=== PATIENT | female | born 1960 | race Caucasian/White ===

== ENCOUNTER 2020-02-04 11:39 | Emergency (ER) | payer OTHER ==
[~2020-02-04] VITALS: Ht 165.1 cm; Wt 124.7 kg
[2020-02-04] MEDS ORDERED: MORPHINE SULFATE 4 MG/ML SYR/VIAL IV ONE (12:30)
[2020-02-04] MEDS ORDERED: ONDANSETRON HCL 4 MG/2 ML VIAL IV ONE (12:30)
[2020-02-04 13:15] LABS: Basophils # (auto) 0 10 ^3/uL (0-0.2); Basophils % (auto) 0.5 % (0.0-2.0); Eosinophils # (auto) 0.1 10 ^3/uL (0-0.8); Eosinophils % (auto) 0.9 % (0.0-7.0); Hematocrit 42.7 % (36.0-46.0); Hemoglobin 14.5 g/dL (12.2-16.2); Lymphocytes # (auto) 2.3 10 ^3/uL (0.4-5.4); Lymphocytes % (auto) 23.9 % (10.0-50.0); Mean Corpuscular Hemoglobin 29.3 pg (28.0-32.0); Mean Corpuscular Hgb Conc. 33.9 g/dL (32.0-36.0); Mean Corpuscular Volume 86.5 fL (80.0-100.0); Monocytes # (auto) 0.5 10 ^3/uL (0-1.3); Monocytes % (auto) 5.2 % (0.0-12.0); Neutrophils # (auto) 6.6 10 ^3/uL (1.6-8.6); Neutrophils % (auto) 69.5 % (37.0-80.0); Nucleated Red Blood Cells % 0.1 %; Platelet Count (auto) 184 10^3/uL (140-450); Red Blood Cells 4.94 10^6/uL (4.0-5.20); Red Cell Distribution Width 14.1 % (11.8-14.3); White Blood Cell 9.5 10^3/uL (4.4-10.8)
[2020-02-04 13:37] LABS: Alanine Aminotransferase 33 U/L (13-56); Albumin 3.5 g/dL (3.4-5.0); Anion Gap 9 (5-15); Blood Urea Nitrogen 17 mg/dL (7-18); Carbon Dioxide 26 mmol/L (21-32); Chloride 99 mmol/L (98-107); Glucose 195 mg/dL (74-106); Potassium 3.7 mmol/L (3.5-5.1); Sodium 134 mmol/L (136-145)
[2020-02-04 13:41] LABS: Alkaline Phosphatase 70 U/L (45-117); Aspartate Aminotransferase 29 U/L (15-37); BUN/Creatinine Ratio 23.9; Bilirubin, Total 0.6 mg/dL (0.2-1.0); GFR African American 108 mL/min; GFR Non-African American 89 mL/min; Total Protein 8.3 g/dL (6.4-8.2)
[2020-02-04 14:38] VITALS: BP 136/80
== END 2020-02-04 14:30 | disposition home or self-care (01) ==
LOC: ER 11:39
DX: S70.01XA Contusion of right hip, initial encounter (principal); E11.9 Type 2 diabetes mellitus without complications; E78.5 Hyperlipidemia, unspecified; J44.9 Chronic obstructive pulmonary disease, unspecified; Z88.1 Allergy status to other antibiotic agents; Z90.49 Acquired absence of other specified parts of digestive tract; W19.XXXA Unspecified fall, initial encounter; Y93.89 Activity, other specified; Y92.89 Other specified places as the place of occurrence of the external cause; Y99.8 Other external cause status
CPT/HCPCS: 36415; 71101; 73502; 80053; 84484; 85025; 96374; 96375; 99284; J2270; J2405

== ENCOUNTER 2022-12-06 16:43 | Emergency (ER) | payer OTHER, MEDICAID ==
[~2022-12-06] VITALS: Ht 160 cm; Wt 135.1 kg
[2022-12-06 19:11] LABS: Basophils # (auto) 0 10 ^3/uL (0-0.2); Basophils % (auto) 0.4 % (0.0-2.0); Eosinophils # (auto) 0.1 10 ^3/uL (0-0.8); Eosinophils % (auto) 1.3 % (0.0-7.0); Hemoglobin 14.4 g/dL (12.2-16.2); Lymphocytes % (auto) 27.5 % (10.0-50.0); Mean Corpuscular Hemoglobin 29.4 pg (28.0-32.0); Mean Corpuscular Hgb Conc. 34.2 g/dL (32.0-36.0); Mean Corpuscular Volume 85.9 fL (80.0-100.0); Monocytes # (auto) 0.6 10 ^3/uL (0-1.3); Monocytes % (auto) 7.6 % (0.0-12.0); Neutrophils # (auto) 4.7 10 ^3/uL (1.6-8.6); Neutrophils % (auto) 63.2 % (37.0-80.0); Nucleated Red Blood Cells % 0.1 %; Red Blood Cells 4.88 10^6/uL (4.0-5.20); Red Cell Distribution Width 14.7 % (11.8-14.3); White Blood Cell 7.4 10^3/uL (4.4-10.8)
[2022-12-06 19:23] LABS: Albumin 3.6 g/dL (3.4-5.0); Calcium 9.3 mg/dL (8.5-10.1); Potassium 3.6 mmol/L (3.5-5.1)
[2022-12-06 19:26] LABS: BUN/Creatinine Ratio 30.4; Bilirubin, Total 0.5 mg/dL (0.2-1.0); Total Protein 8.3 g/dL (6.4-8.2)
[2022-12-06 19:29] LABS: INR 0.97 (0.9-1.15); Partial Thromboplastin Time 30.5 sec (24.6-33.4)
[2022-12-06 20:45] VITALS: BP 145/86
== END 2022-12-06 20:49 | disposition home or self-care (01) ==
LOC: ER 16:43
DX: S30.1XXA Contusion of abdominal wall, initial encounter (principal); J44.9 Chronic obstructive pulmonary disease, unspecified; E11.9 Type 2 diabetes mellitus without complications; E78.5 Hyperlipidemia, unspecified; Z90.49 Acquired absence of other specified parts of digestive tract; Z88.8 Allergy status to other drugs, medicaments and biological substances; W18.39XA Other fall on same level, initial encounter; Y93.89 Activity, other specified; Y92.89 Other specified places as the place of occurrence of the external cause; Y99.8 Other external cause status
CPT/HCPCS: 36415; 74176; 80053; 85025; 85610; 85730

== ENCOUNTER → 2023-04-07 | Outpatient (CLI) | payer OTHER, MEDICAID ==
[2023-04-07 07:11] LABS: Basophils # (auto) 0 10 ^3/uL (0-0.2); Basophils % (auto) 0.5 % (0.0-2.0); Eosinophils # (auto) 0.1 10 ^3/uL (0-0.8); Eosinophils % (auto) 1.9 % (0.0-7.0); Hematocrit 37.5 % (36.0-46.0); Hemoglobin 12.8 g/dL (12.2-16.2); Lymphocytes # (auto) 2.4 10 ^3/uL (0.4-5.4); Lymphocytes % (auto) 40.7 % (10.0-50.0); Mean Corpuscular Hemoglobin 29.4 pg (28.0-32.0); Mean Corpuscular Volume 86.4 fL (80.0-100.0); Monocytes # (auto) 0.4 10 ^3/uL (0-1.3); Monocytes % (auto) 7.6 % (0.0-12.0); Neutrophils # (auto) 2.9 10 ^3/uL (1.6-8.6); Neutrophils % (auto) 49.3 % (37.0-80.0); Nucleated Red Blood Cells % 0.1 %; Red Blood Cells 4.35 10^6/uL (4.0-5.20); Red Cell Distribution Width 14.9 % (11.8-14.3); White Blood Cell 5.8 10^3/uL (4.4-10.8)
[2023-04-07 07:46] LABS: Albumin 3.6 g/dL (3.4-5.0); Calcium 9.2 mg/dL (8.5-10.1); Potassium 3.8 mmol/L (3.5-5.1)
[2023-04-07 07:53] LABS: BUN/Creatinine Ratio 38.6 (10.0-20.0); Bilirubin, Total 0.5 mg/dL (0.2-1.0); Total Protein 7.7 g/dL (6.4-8.2)
== END | disposition home or self-care (01) ==
LOC: LAB 06:48
PROVIDERS: ATTEND Internal Medicine Hematology & Oncology
DX: E11.42 Type 2 diabetes mellitus with diabetic polyneuropathy (principal); I10 Essential (primary) hypertension; K21.9 Gastro-esophageal reflux disease without esophagitis; E55.9 Vitamin D deficiency, unspecified; Z12.11 Encounter for screening for malignant neoplasm of colon; J40 Bronchitis, not specified as acute or chronic
CPT/HCPCS: 36415; 80053; 80061; 82043; 82306; 83036; 84443; 85025

== ENCOUNTER → 2023-09-06 | Outpatient (CLI) | payer OTHER, MEDICAID ==
[2023-09-06 08:59] LABS: Basophils # (auto) 0 10 ^3/uL (0-0.2); Basophils % (auto) 0.4 % (0.0-2.0); Eosinophils # (auto) 0.1 10 ^3/uL (0-0.8); Hematocrit 40.7 % (36.0-46.0); Hemoglobin 13.2 g/dL (12.2-16.2); Lymphocytes # (auto) 1.9 10 ^3/uL (0.4-5.4); Mean Corpuscular Hemoglobin 28.5 pg (28.0-32.0); Mean Corpuscular Hgb Conc. 32.6 g/dL (32.0-36.0); Mean Corpuscular Volume 87.4 fL (80.0-100.0); Monocytes # (auto) 0.5 10 ^3/uL (0-1.3); Monocytes % (auto) 6.8 % (0.0-12.0); Neutrophils % (auto) 65.8 % (37.0-80.0); Red Blood Cells 4.65 10^6/uL (4.0-5.20); Red Cell Distribution Width 15.7 % (11.8-14.3); White Blood Cell 7.5 10^3/uL (4.4-10.8)
[2023-09-06 09:27] LABS: Alanine Aminotransferase 17 U/L (7-40); Albumin 4.4 g/dL (3.2-4.8); Alkaline Phosphatase 48 U/L (46-116); Anion Gap 8 (5-15); Aspartate Aminotransferase 19 U/L (13-40); BUN/Creatinine Ratio 27.1 (10.0-20.0); Blood Urea Nitrogen 16 mg/dL (9-23); Calcium 9.7 mg/dL (8.5-10.1); Carbon Dioxide 25 mmol/L (20-30); Chloride 104 mmol/L (98-107); Cholesterol 103 mg/dL (< 200); Glucose 119 mg/dL (74-106); LDL Cholesterol 46 mg/dL (< 100); Sodium 137 mmol/L (136-145); Triglycerides 103 mg/dL (< 150)
[2023-09-06 09:28] LABS: Bilirubin, Total 0.7 mg/dL (0.2-1.0); HDL Cholesterol 42 mg/dL (40-59); Total Protein 7.5 g/dL (5.7-8.2)
== END | disposition home or self-care (01) ==
LOC: LAB 08:39
PROVIDERS: ATTEND Internal Medicine Hematology & Oncology
DX: I10 Essential (primary) hypertension (principal); E11.9 Type 2 diabetes mellitus without complications; E78.5 Hyperlipidemia, unspecified; E03.9 Hypothyroidism, unspecified
CPT/HCPCS: 36415; 80053; 80061; 83036; 85025

== ENCOUNTER → 2024-03-02 | Outpatient (CLI) | payer OTHER, MEDICAID ==
[2024-03-02 15:15] LABS: Amphetamine Screen, Urine Neg (NEGATIVE); Barbiturate Scree,Urine Neg (NEGATIVE); Benzodiazephine Screen, Urine Neg (NEGATIVE); Cannabinoid Screen, Urine Neg (NEGATIVE); Cocaine Screen, Urine Neg (NEGATIVE); Opiate Scree,Urine Neg (NEGATIVE); Phencyclidine Screen, Urine Neg (NEGATIVE)
== END | disposition home or self-care (01) ==
LOC: LAB 14:42
PROVIDERS: ATTEND Internal Medicine Hematology & Oncology
DX: E11.42 Type 2 diabetes mellitus with diabetic polyneuropathy (principal)
CPT/HCPCS: 80307

== ENCOUNTER 2024-09-01 13:26 | Emergency (ER) | payer OTHER, MEDICAID ==
[~2024-09-01] VITALS: Ht 160 cm; Wt 113.0 kg
--- NOTE | 2024-09-01 16:41 | ED.PDOC ---
Back pain HPI HPI Comments 64 y.o female with PMH of COPD, DM, sleep apnea and arthritis, presents to the ED for a chief complaint of left shoulder pain s/p pull injury. Patient reports last night she walked to bed, tried to move her Commode, grabbed it with her left arm and heard a popping sensation , then felt pain in her left shoulder. Patient immediately began having sharp pain and had limited ROM due to the pain. Patient denies any falls. Patient denies any other associating symptoms. Chief Complaint: Upper Extremity Time Seen by MD: 16:24 Reviewed Notes: Nurses Notes, Galley Cook Notes, Medications, Allergies Allergies: Coded Allergies: Amoxicillin (Verified Allergy, Unknown, 02/04/20) Information Source: Patient Mode of Arrival: EMS Timing: Hours Duration: Since onset Severity: Mild Quality: Sharp Onset: Lifing Circumstance: Other History of: None Past Medical History PAST MEDICAL HISTORY: COPD, DM, High Lipids Surgical History: Appendectomy, Cholecystectomy PAPER REELER History: No Pertinent PAPER REELER History Family History Family History: Family hx of Cancer Social History Smoker: Non-Smoker Alcohol: Denies ETOH Use Drugs: Denies Drug Use Lives In: Home Constitutional: denies: chills, diaphoresis, fatigue, fever, malaise, sweats, weakness, others EENTM: denies: blurred vision, double vision, ear bleeding, ear discharge, ear drainage, ear pain, ear ringing, eye pain, eye redness, hearing loss, mouth pain, mouth swelling, nasal discharge, nose bleeding, nose congestion, nose pain, photophobia, tearing, throat pain, throat swelling, voice changes, others Respiratory: denies: cough, hemoptysis, orthopnea, SOB at rest, shortness of breath, SOB with excertion, stridor, wheezing, others Cardiovascular: denies: chest pain, dizzy spells, diaphoresis, Dyspnea on exertion, edema, irregular heart beat, left arm pain, lightheadedness, palpitations, PND, syncope, others Gastrointestinal: denies: abdomen distended, abdominal pain, blood streaked bowels, constipated, diarrhea, dysphagia, difficulty swallowing, hematemesis, melena, nausea, poor appetite, poor fluid intake, rectal bleeding, rectal pain, vomiting, others Genitourinary: denies: abnormal vagina bleeding, burning, dyspareunia, dysuria, flank pain, frequency, hematuria, incontinence, pain, , vagina discharge, urgency, others Neurological: denies: dizziness, fainting, headache, left sided numbness, left sided weakness, numbness, paresthesia, pre-existing deficit, right sided numbness, right sided weakness, seizure, speech problems, tingling, tremors, weakness, others Musculoskeletal: reports: others (left shoulder pain ); denies: back pain, gout, joint pain, joint swelling, muscle pain, muscle stiffness, neck pain Integumetry: denies: bruises, change in color, change in hair/nails, dryness, laceration, lesions, lumps, rash, wounds, others Allergic/Immunocompromised: denies: Difficulty Healing, Frequent Infections, Hives, Itching, others Hematologic/Lymphatic: denies: anemia, blood clots, easy bleeding, easy bruising, swollen glands, others Endocrine: denies: excessive hunger, excessive sweating, excessive thirst, excessive urination, flushing, intolerance to cold, intolerance to heat, unexplained weight gain, unexplained weight loss, others Psychiatric: denies: anxiety, bipolar disorder, depression, hopeless, panic disorder, schizophrenia, sleepless, suicidal, others All Other Systems: Reviewed and Negative Physical Exam General Appearance: No Apparent Distress, Obese HEENT: Normal ENT Inspection Neck: Full Range of Motion, Normal Inspection Respiratory: Lungs Clear, No Accessory Muscle Use, No Respiratory Distress, Normal Breath Sounds Cardiovascular: No Edema, No JVD, Regular Rate/Rhythm Breast Exam: Deferred Gastrointestinal: Non Tender, Soft Genitalia: Deferred Pelvic: Deferred Rectal: Deferred Extremities: Normal inspection, Other (Left shoulder diffuse soft tissue tenderness and painful range of motion, particularly with abduction and flexion.) Neurologic: Alert, No Motor Deficits, Normal Affect, Normal Mood, No Sensory Deficits Cerebellar Function: NOT DONE Reflexes: NOT DONE Skin: Dry, Normal Color, Warm Peripheral Pulses: 2+ Radial (R), 2+ Radial (L) Lymphatic: NOT DONE Was a procedure done? Was a procedure done?: No Back Pain Differential Dx Differential Diagnosis: Fracture, Musculoskeletal Pain, Strain Other Differential Diagnosis dislocation X-Ray, Labs, Meds, VS Vital Signs Date Time Temp Pulse Resp B/P (MAP) Pulse Ox O2 Delivery O2 Flow Rate FiO2 09/01/24 18:01 97.9 69 17 144/73 (96) 96 97.9 09/01/24 18:01 69 17 96 Room Air 09/01/24 16:24 98.0 66 16 144/80 (101) 96 Current Medications Medications (Trade) Dose Ordered Sig/Angelo Route Start Time Stop Time Status Last Admin Ketorolac Tromethamine (Toradol Injection) 60 mg ONCE ONCE IM 09/01/24 17:30 09/01/24 17:31 DC 09/01/24 17:57 Acetaminophen/ Hydrocodone Bitart (Colcord 5/325MG Tab) 2 tab ONCE ONCE PO 09/01/24 17:30 09/01/24 17:31 DC 09/01/24 17:57 PROCEDURE(s): LSHD2 - L SHOULDER 2+ VIEW XRAY REASON: trauma ORDER NUMBER(s): [id number], ACCESSION NUMBER(s): [id number] EXAM: XY L SHOULDER 2+ VIEW XRAY CLINICAL HISTORY: trauma COMPARISON: None TECHNIQUE: XY L SHOULDER 2+ VIEW XRAY Findings/Impression: 3 views of the left shoulder. There is no evidence of an acute fracture, dislocation, blastic, or lytic lesions. No radiopaque foreign bodies. No joint effusion or superficial soft tissue abnormalities. X-Ray, Labs, Meds, VS Comment 64-year-old female with a history of COPD, DM, sleep apnea and arthritis complaining of left shoulder pain after a pulling/lifting injury. Vitals remarkable for BP 144/80 Exam remarkable for diffuse left shoulder soft tissue tenderness, no deformity, painful range of motion Left shoulder x-rays: Findings/Impression: 3 views of the left shoulder. There is no evidence of an acute fracture, dislocation, blastic, or lytic lesions. No radiopaque foreign bodies. No joint effusion or superficial soft tissue abnormalities. Patient was treated with the following in the ED: Toradol 60 mg IM, Colcord 5/325 mg, 2 tabs p.o. The left upper extremity was placed in a sling. The left upper extremity was neurovascularly intact after the sling was applied. On re-evaluation, patient was pain controlled, and vitals were stable. Hospitalization was considered, however the patient had rapid improvement of her symptoms with treatment in the ED, and I no longer feel hospitalization is necessary. Patient appears stable for outpatient follow-up with her primary physician for referral for MRI of her shoulder and possible patient orthopedic follow-up. Patient will be referred to Dr. Syed. Time of 1ST Reevaluation: 16:41 Reevaluation 1ST: Unchanged Time of 2ND Reevaluation: 18:51 Reevaluation 2ND: Improved Patient Education/Counseling: Diagnosis, Treatment, Prognosis Family Education/Counseling: No Family Present Departure 1 Departure Time of Disposition: 18:51 Impression: Primary Impression: Shoulder sprain Qualified Codes: S43.402A - Unspecified sprain of left shoulder joint, initial encounter Disposition: HOME / SELF CARE / HOMELESS Condition: Stable Referrals: LONI SYED MD Additional Instructions: Your left shoulder x-rays were normal. Take your own Colcord at home as needed for pain. I have also prescribed additional pain medication. Follow-up with your primary doctor in 1-2 days for referral for MRI of your shoulder. Alternatively, follow-up directly with Dr. Syed (orthopedics). e-Prescriptions Ibuprofen Micronized (Ibuprofen) 800 Mg Tab 800 MG PO Q8HP PRN, #30 TAB Prov: JOEL MYRICK MD 09/01/24 Discharged With: Relative Critical Care Note Critical Care Time?: No Stability Stability form required: No I personally scribed for JOEL MYRICK MD ([facility] on 09/01/24 at 16:41. Electronically submitted by Vangie Giang ([facility]). JOEL MYRICK MD Sep 01, 2024 16:41
--- NOTE | 2024-09-01 17:55 | DVH ---
EXAM: XY L SHOULDER 2+ VIEW XRAY CLINICAL HISTORY: trauma COMPARISON: None TECHNIQUE: XY L SHOULDER 2+ VIEW XRAY Findings/Impression: 3 views of the left shoulder. There is no evidence of an acute fracture, dislocation, blastic, or lytic lesions. No radiopaque foreign bodies. No joint effusion or superficial soft tissue abnormalities.
[2024-09-01] MEDS: KETOROLAC TROMETH 60MG/2ML VIAL IM ONE (17:57)
[2024-09-01] MEDS: HYDROcodone-ACET 5/325MG TAB PO ONE (17:57)
[2024-09-01 18:01] VITALS: TEMP 97.9
[2024-09-01] MEDS ORDERED: IBUP-1455 PO (18:54)
[2024-09-01 20:16] VITALS: BP 115/53; PULSE 63; RESP 18; O2SAT 95
== END 2024-09-01 20:18 | disposition home or self-care (01) ==
LOC: ER 13:26 → EDBD 13:26 → ER 20:18
DX: S43.492A Other sprain of left shoulder joint, initial encounter (principal); E11.9 Type 2 diabetes mellitus without complications; E78.5 Hyperlipidemia, unspecified; J44.9 Chronic obstructive pulmonary disease, unspecified; Z90.49 Acquired absence of other specified parts of digestive tract; Z88.0 Allergy status to penicillin; X58.XXXA Exposure to other specified factors, initial encounter; Y93.89 Activity, other specified; Y92.89 Other specified places as the place of occurrence of the external cause; Y99.8 Other external cause status
CPT/HCPCS: 73030; 96372; 99283; J1885

== ENCOUNTER 2024-11-09 12:17 | Emergency (ER) | payer OTHER, MEDICAID ==
[~2024-11-09] VITALS: Ht 152.4 cm; Wt 110.0 kg
[~2024-11-09 12:17] MED LIST: IBUP-1455 PO
[2024-11-09 14:17] VITALS: BP 144/69; PULSE 70; RESP 20; TEMP 97.9; O2SAT 95
--- NOTE | 2024-11-09 14:26 | ED.PDOC ---
Alejandra. trauma (HPI) HPI Comments A 64 YEAR OLD FEMALE BROUGHT IN BY AMBULANCE PRESENTS TO THE ED WITH COMPLAINT OF HEAD INJURY AND LEFT SHOULDER PAIN S/P FALL. PATIENT STATES SHE ACCIDENTALLY FELL AND LANDED ON THE LEFT SIDE OF HER BODY TODAY. PATIENT REPORTS SHE HIT HER HEAD ON THE GROUND AND IS NOW EXPERIENCING A HEADACHE AND LEFT SHOULDER PAIN. SYED CASAS DENIES NECK INJURY, LOC, FEVER, CHILLS, SHORTNESS OF BREATH, CHEST PAIN, ABDOMINAL PAIN, NAUSEA, VOMITING, OR OTHER COMPLAINTS. NO OTHER SYMPTOMS OR MODIFYING FACTORS AT THIS TIME. PATIENT IS ALERT, ORIENTED X 4, AND HAS STEADY GAIT. Chief Complaint: Fall Injury Time Seen by MD: 12:41 Reviewed notes: Nurses Notes, Medications, Allergies Allergies: Coded Allergies: Amoxicillin (Verified Allergy, Unknown, 02/04/20) Home Meds Active Scripts Ibuprofen Micronized (Ibuprofen) 800 Mg Tab, 800 MG PO Q8HP PRN, #30 TAB Prov:JOEL MYRICK MD 09/01/24 Information Source: Patient Mode of Arrival: EMS Severity: Moderate Timing: Days Duration: Since onset, Days Prehospital treatment: None Location: Head, (L) Shoulder Location of laceration: None Mechanism: Fall Associated signs and symtoms: Headache Past Medical History PAST MEDICAL HISTORY: COPD, DM, High Lipids Surgical History: Appendectomy, Cholecystectomy SEAT MAKER History: No Pertinent SEAT MAKER History Family History Family History: Family hx of Cancer Social History Smoker: Non-Smoker Alcohol: Denies ETOH Use Drugs: Denies Drug Use Lives In: Home Constitutional: denies: chills, diaphoresis, fatigue, fever, malaise, sweats, weakness, others EENTM: denies: blurred vision, double vision, ear bleeding, ear discharge, ear drainage, ear pain, ear ringing, eye pain, eye redness, hearing loss, mouth pain, mouth swelling, nasal discharge, nose bleeding, nose congestion, nose pain, photophobia, tearing, throat pain, throat swelling, voice changes, others Respiratory: denies: cough, hemoptysis, orthopnea, SOB at rest, shortness of breath, SOB with excertion, stridor, wheezing, others Cardiovascular: denies: chest pain, dizzy spells, diaphoresis, Dyspnea on exertion, edema, irregular heart beat, left arm pain, lightheadedness, palpitations, PND, syncope, others Gastrointestinal: denies: abdomen distended, abdominal pain, blood streaked bowels, constipated, diarrhea, dysphagia, difficulty swallowing, hematemesis, melena, nausea, poor appetite, poor fluid intake, rectal bleeding, rectal pain, vomiting, others Genitourinary: denies: abnormal vagina bleeding, burning, dyspareunia, dysuria, flank pain, frequency, hematuria, incontinence, pain, , vagina discharge, urgency, others Neurological: reports: headache; denies: dizziness, fainting, left sided numbness, left sided weakness, numbness, paresthesia, pre-existing deficit, right sided numbness, right sided weakness, seizure, speech problems, tingling, tremors, weakness, others Musculoskeletal: reports: joint pain, muscle pain, others (LEFT SHOULDER PAIN); denies: back pain, gout, joint swelling, muscle stiffness, neck pain Integumetry: denies: bruises, change in color, change in hair/nails, dryness, laceration, lesions, lumps, rash, wounds, others Allergic/Immunocompromised: denies: Difficulty Healing, Frequent Infections, Hives, Itching, others Hematologic/Lymphatic: denies: anemia, blood clots, easy bleeding, easy b ruising, swollen glands, others Endocrine: denies: excessive hunger, excessive sweating, excessive thirst, excessive urination, flushing, intolerance to cold, intolerance to heat, unexplained weight gain, unexplained weight loss, others Psychiatric: denies: anxiety, bipolar disorder, depression, hopeless, panic disorder, schizophrenia, sleepless, suicidal, others All Other Systems: Reviewed and Negative Physical Exam General Appearance: No Apparent Distress, Obese HEENT: Head (NO CONTUSIONS AND HEMATOMAS ON SCALP, NO SCALP DEFORMITY. ), Normal ENT Inspection, PERRL/EOMI, Pharynx Normal, TMs Normal Neck: Full Range of Motion, Non-Tender, Normal, Normal Inspection Respiratory: Chest Non-Tender, Lungs Clear, No Accessory Muscle Use, No Respiratory Distress, Normal Breath Sounds Cardiovascular: No Edema, No JVD, No Murmur, No Gallop, Normal Peripheral Pulses, Regular Rate/Rhythm Breast Exam: Deferred Gastrointestinal: No Organomegaly, Non Tender, No Pulsatile Mass, Normal Bowel Sounds, Soft Genitalia: Deferred Pelvic: Deferred Rectal: Deferred Extremities: Decreased range of motion (SLIGHTLY. ), No calf tenderness, Normal capillary refill, No pedal edema, Tender (AND MUSCLE SPASM ON LEFT SHOULDER, NO BONY TENDERNESS AND DEFORMITY. ) Musculoskeletal : Apperance: Normal Neurologic: Alert, graphic technician II-XII nml as Tested, No Motor Deficits, Normal Affect, Normal Mood, No Sensory Deficits Cerebellar Function: Normal Reflexes: Normal Skin: Dry, Normal Color, Warm Peripheral Pulses: 2+ carotid (R), 2+ carotid (L), 2+ dorsalis pedis (R), 2+ dorsalis pedis (L) Lymphatic: No Adenopathy Was a procedure done? Was a procedure done?: No Differential Diagnosis Multiple Trauma: Closed Head Injury, Fractures, Cerebral Contusion, Contusion, Hematoma, Other (MUSCLE STRAIN OF LEFT SHOULDER) Neck Injury: N/A X-Ray, Labs, Meds, VS Vital Signs Date Time Temp Pulse Resp B/P (MAP) Pulse Ox O2 Delivery O2 Flow Rate FiO2 11/09/24 14:17 97.9 70 20 144/69 (94) 95 97.9 11/09/24 12:40 97.9 70 20 144/69 (94) 95 Current Medications Medications (Trade) Dose Ordered Sig/Angelo Route Start Time Stop Time Status Last Admin Acetaminophen (Tylenol Tablet) 1,000 mg ONCE ONCE PO 11/09/24 15:00 11/09/24 15:01 DC 11/09/24 15:09 EXAM: CT HEAD WITHOUT CONTRAST HISTORY: FALL COMPARISON: None TECHNIQUE: Axial images of the head were obtained and reformatted in coronal and sagittal planes. All CT scans at this medical facility are performed using dose modulation techniques as appropriate to a performed exam including the following: Automated exposure control was utilized; adjustment of the MA and/or KV according to patient size; and use of iterative reconstruction technique. CT Dose: CTDI volume is 54 mGy. Dose-length product is 1067 mGy*cm FINDINGS: There is no evidence of acute intracranial hemorrhage, mass, mass effect midline shift. There is no hydrocephalus or extra-axial fluid collection. [place]-white matter differentiation is maintained. The visualized paranasal sinuses and mastoid air cells are clear. The calvarium is intact. IMPRESSION: 1. No acute intracranial process. HS:Y ATED BY: FABIÁN MADRIGAL MD DICTATED DATE/TIME: 11/09/241455 SIGNED BY: FABIÁN MADRIGAL MD SIGNED DATE/TIME: 11/09/241455 CC: XY L SHOULDER 2+ VIEW XRAY INDICATION: FALL TECHNICAL DATA: 3 views were obtained of the left shoulder. COMPARISON: XY L SHOULDER 2+ VIEW XRAY on DOS: 09/01/24 FINDINGS: There is no fracture or focal bone abnormality. The glenohumeral joint is normally maintained. The acromioclavicular joint appears normal. The humeral head is not high riding. Adjacent soft tissues are within normal limits. Degenerative changes are noted involving the visualized spine. IMPRESSION: No acute fracture or dislocation of the left shoulder. ATED BY: BRIAN BHAKTA MD DICTATED DATE/TIME: 11/09/241512 SIGNED BY: BRIAN BHAKTA MD SIGNED DATE/TIME: 11/09/241512 CC: X-Ray, Labs, Meds, VS Comment EXTERNAL MEDICAL RECORDS REVIEWED: [NONE] INDEPENDENT HISTORIANS: [NONE] SOCIAL DETERMINANTS OF HEALTH: [NONE] LABS ORDERED: NONE REVIEWED AND INTERPRETED RESULTS: NONE IMAGING ORDERED: CT BRAIN, XR SHOULDER LT TREATMENTS ORDERED: TYLENOL 1G PO PROCEDURES PERFORMED: NONE CRITICAL CARE TIME: NONE I HAVE DISCUSSED THE PATIENT WITH THE ATTENDING PHYSICIAN DR. HENSLEY AND HE AGREES WITH THE PATIENT'S PLAN OF CARE AND DISPOSITION. BASED ON HISTORY OF PRESENT ILLNESS, AND PHYSICAL EXAM, PATIENT WILL BE DISCHARGED HOME. SHARED DECISION MAKING: DISCUSSED WITH PATIENT THAT THEIR WORKUP WAS NORMAL. PATIENT INSTRUCTED TO FOLLOW UP WITH PRIMARY CARE PROVIDER IN 1-2 DAYS FOR RE- EVALUATION OF SYMPTOMS. PATIENT VERBALIZES UNDERSTANDING TO RETURN TO ED FOR NEW OR WORSENING SYMPTOMS OR IF FOLLOW UP WITH PCP CANNOT BE OBTAINED. PATIENT FEELS COMFORTABLE GOING HOME AT THIS TIME. ALL QUESTIONS ADDRESSED AT TIME OF DISCHARGE. Images Reviewed?: Images reviewed and evaluated by me Time of 1ST Reevaluation: 15:20 Reevaluation 1ST: Improved Patient Education/Counseling: Diagnosis, Treatment, Need For Follow Up Family Education/Counseling: Diagnosis, Treatment, Need For Follow Up Medical Screening: No EMC Exist At This Time Departure 1 Departure Time of Disposition: 15:30 Impression: Primary Impression: Muscle strain of left shoulder Qualified Codes: S46.912A - Strain of unspecified muscle, fascia and tendon at shoulder and upper arm level, left arm, initial encounter Additional Impressions: Acute headache Qualified Codes: R51.9 - Headache, unspecified Status post fall Disposition: 01 HOME / SELF CARE / HOMELESS Condition: Stable Additional Instructions: FOLLOW-UP WITH PCP IN 1 TO 2 DAYS. TAKE MEDICATIONS PRESCRIBED. RETURN TO ED FOR ANY NEW OR WORSENING SYMPTOMS. Discharged With: Self Critical Care Note Critical Care Time?: No Stability Stability form required: No I personally scribed for SOL BECERRA ([email or web address]) on 11/09/24 at 14:26. Electronically submitted by Michael Lee ([facility]). I personally scribed for SOL BECERRA ([email or web address]) on 11/09/24 at 15:11. Electronically submitted by Michael Lee ([facility]). I personally scribed for SOL BECERRA ([email or web address]) on 11/09/24 at 15:12. Electronically submitted by Michael Lee ([facility]). SOL BECERRA Nov 09, 2024 14:26
--- NOTE | 2024-11-09 14:59 | DVH ---
EXAM: CT HEAD WITHOUT CONTRAST HISTORY: FALL COMPARISON: None TECHNIQUE: Axial images of the head were obtained and reformatted in coronal and sagittal planes. All CT scans at this medical facility are performed using dose modulation techniques as appropriate t o a performed exam including the following: Automated exposure control was utilized; adjustment of th e MA and/or KV according to patient size; and use of iterative reconstruction technique. CT Dose: CTDI volume is 54 mGy. Dose-length product is 1067 mGy*cm FINDINGS: There is no evidence of acute intracranial hemorrhage, mass, mass effect midline shift. There is no h ydrocephalus or extra-axial fluid collection. [place]-white matter differentiation is maintained. The visualized paranasal sinuses and mastoid air cells are clear. The calvarium is intact. IMPRESSION: 1. No acute intracranial process. HS:Y
[2024-11-09] MEDS: ACETAMINOPHEN 325 MG TAB PO ONE (15:09)
--- NOTE | 2024-11-09 15:09 | DVH ---
XY L SHOULDER 2+ VIEW XRAY INDICATION: FALL TECHNICAL DATA: 3 views were obtained of the left shoulder. COMPARISON: XY L SHOULDER 2+ VIEW XRAY on DOS: 09/01/24 FINDINGS: There is no fracture or focal bone abnormality. The glenohumeral joint is normally maintained. The ac romioclavicular joint appears normal. The humeral head is not high riding. Adjacent soft tissues are within normal limits. Degenerative changes are noted involving the visualized spine. IMPRESSION: No acute fracture or dislocation of the left shoulder.
== END 2024-11-09 15:16 | disposition home or self-care (01) ==
LOC: EDUNIT# 12:17 → ER 12:17 → EDBD 12:17 → ER 15:15
DX: S46.812A Strain of other muscles, fascia and tendons at shoulder and upper arm level, left arm, initial encounter (principal); S09.8XXA Other specified injuries of head, initial encounter; E11.9 Type 2 diabetes mellitus without complications; J44.9 Chronic obstructive pulmonary disease, unspecified; Z90.49 Acquired absence of other specified parts of digestive tract; Z88.0 Allergy status to penicillin; W18.39XA Other fall on same level, initial encounter; Y93.89 Activity, other specified; Y92.89 Other specified places as the place of occurrence of the external cause; Y99.8 Other external cause status
CPT/HCPCS: 70450; 73030